=== PATIENT | female | born 1935 | race Caucasian/White ===

== ENCOUNTER 2017-09-27 05:49 | Day surgery (SDC) | payer MEDICARE ==
[~2017-09-27] VITALS: Ht 167.6 cm; Wt 55.0 kg
[~2017-09-27 05:49] MED LIST: ASCO10004 PO; ASPI-496 PO; ATOR10TA PO; CHOL200024 PO; LISI-167 PO; MULT-154 PO; OMEG-69 PO; VIT1CAPS42 PO
[2017-09-27] MEDS ORDERED: INDOCYANINE GREEN 25 MG VIAL ONE (06:47)
[2017-09-27] MEDS ORDERED: EPINEPHRINE 1 MG/ML, 1ML ONE (06:47)
[2017-09-27] MEDS ORDERED: BUPIVACAINE/PF 0.25% ONE (06:47)
[2017-09-27] MEDS ORDERED: HEPARIN 1,000 UNITS/ML, 10ML ONE (06:47)
[2017-09-27] MEDS ORDERED: LACTATED RINGERS 1,000 ML IV SCH (06:57)
[2017-09-27] MEDS ORDERED: LIDOCAINE-MPF 1%, 2ML INFIL ONE (07:00)
[2017-09-27 07:01] VITALS: BP 173/79
[2017-09-27] MEDS ORDERED: LABETALOL 5MG/ML, 20ML IV PRN (07:30)
[2017-09-27] MEDS ORDERED: PROMETHAZINE 25 MG/ML, 1ML IV PRN (07:30)
[2017-09-27] MEDS ORDERED: hydrALAzine 20 MG/ML, 1ML IV PRN (07:30)
[2017-09-27] MEDS ORDERED: HYDROcodone/APAP 7.5-325MG/15ML UDC PO PRN (07:30)
[2017-09-27] MEDS ORDERED: MEPERIDINE/PF 25MG/0.5ML IVPush PRN (07:30)
[2017-09-27] MEDS ORDERED: METOCLOPRAMIDE 5 MG/ML, 2ML IV PRN (07:30)
[2017-09-27] MEDS ORDERED: ONDANSETRON 2MG/ML, 2ML IVPush PRN ×2 (07:30→10:30)
[2017-09-27] MEDS ORDERED: ALBUTEROL SULFATE 2.5 MG/3 ML NPPB PRN (07:30)
[2017-09-27] MEDS ORDERED: ALBUTEROL/IPRATROPIUM 2.5MG/0.5MG, 3 ML NPPB PRN (07:30)
[2017-09-27] MEDS ORDERED: morphine SULFATE 10 MG/ML, 1ML IV PRN (07:30)
[2017-09-27] MEDS ORDERED: HYDROmorphone 1 MG/ML, 1ML IV PRN (07:30)
[2017-09-27] MEDS ORDERED: PHENYLEPHRINE 10 MG/ML ONE (08:15)
[2017-09-27] MEDS ORDERED: GLYCOPYRROLATE 0.2MG/1ML, 5ML ONE (08:15)
[2017-09-27] MEDS ORDERED: CEFAZOLIN 1,000 MG ONE (08:15)
[2017-09-27] MEDS ORDERED: ONDANSETRON 2MG/ML, 2ML ONE ×2 (08:15→10:54)
[2017-09-27] MEDS ORDERED: DEXAMETHASONE 4 MG/ML, 1ML ONE (08:15)
[2017-09-27] MEDS ORDERED: PROPOFOL 10 MG/ML, 20ML ONE (08:15)
[2017-09-27] MEDS ORDERED: ROCURONIUM 10 MG/ML,10ML ONE (08:15)
[2017-09-27] MEDS ORDERED: SUCCINYLCHOLINE 20 MG/ML, 10ML ONE (08:15)
[2017-09-27] MEDS ORDERED: FENTANYL PF 100 MCG/2ML ONE ×2 (10:22→10:54)
[2017-09-27] MEDS ORDERED: HYDROcodone/APAP 7.5-325MG/15ML UDC ONE (10:23)
[2017-09-27] MEDS: FENTANYL PF 100 MCG/2ML IV PRN ×4 (10:25→11:10)
[2017-09-27] MEDS ORDERED: KETOROLAC 30 MG/1 ML IVPush SCH (10:30)
[2017-09-27] MEDS ORDERED: OXYcodone/APAP 7.5/325MG TABLET PO ONE (10:30)
[2017-09-27] MEDS ORDERED: KETOROLAC 30 MG/1 ML ONE (10:54)
== END 2017-09-27 13:45 | disposition home or self-care (01) ==
LOC: OUT 05:49
PROVIDERS: ATTEND Specialist
DX: N95.0 Postmenopausal bleeding (principal); N85.2 Hypertrophy of uterus; N85.8 Other specified noninflammatory disorders of uterus; R59.9 Enlarged lymph nodes, unspecified
CPT/HCPCS: 36415; 38570; 38792; 58571; 86850; 86900; 86923; 88305; 88307; 88331; J0171; J0330; J0690; J1100; J1885; J2250; J2370; J2405; J2704; J3010; J3490; J7120; J1644